=== PATIENT | male | born 1965 | race Caucasian/White ===

== ENCOUNTER 2023-10-23 12:17 | Emergency (ER) | payer BC, SELFPAY ==
[2023-10-23 12:21] VITALS: BP 138/88
[2023-10-23 12:24] VITALS: BP 138/88; BMI 29.9
[2023-10-23 12:33] LABS: % Basophils 1.2 % (0-2); % Eosinophils 1.9 % (0-6); % Immature Granulocytes 0.5 % (0-0.5); % Lymphocytes 25.8 % (20.5-51.1); % Monocytes 10.1 % (1.7-9.3); % Neutrophils 60.5 % (42.2-75.2); Absolute Basophils 0.1 10^3/uL (0-0.2); Absolute Eosinophils 0.1 10^3/uL (0-0.7); Absolute Lymphocytes 1.1 10^3/uL (1.2-3.4); Absolute Monocytes 0.4 10^3/uL (0.1-0.6); Absolute Neutrophils 2.6 10^3/uL (1.4-6.5); Hematocrit 42.1 % (39.0-52.0); Hemoglobin 14.5 g/dL (13.0-18.0); Mean Corp Hgb Conc. 34.4 g/dL (33.0-37.0); Mean Corpuscular Hgb 33.3 pg (27.0-31.0); Mean Corpuscular Volume 96.8 fL (80.0-94.0); Mean Platelet Volume 9.5 fL (7.4-10.4); Nucleated Red Blood Cells % 0 % (-); Platelet Count 214 10^3/uL (130-400); Red Blood Cell Count 4.35 10^6/uL (4.70-6.10); Red Cell Dist. Width 12.6 % (11.5-14.5); White Blood Cell Count 4.3 10^3/uL (4.8-10.8)
[2023-10-23 12:46] LABS: ALT (SGPT) 60 U/L (0-50); AST (SGOT) 51 U/L (17-59); Albumin 4.6 g/dl (3.5-5.0); Alkaline Phosphatase 38 U/L (38-126); Blood Urea Nitrogen 18 mg/dl (9-20); Carbon Dioxide 28 mmol/L (22-30); Chloride 106 mmol/L (98-107); Estimated Creatinine Clearance 83 ml/min; Glucose 149 mg/dl (70-99); Potassium 3.7 mmol/L (3.5-5.1); Sodium 141 mmol/L (135-145); Total Bilirubin 0.6 mg/dl (0.2-1.3); Total Protein 7.4 g/dl (6.3-8.2); eGFR > 60.00
--- NOTE | 2023-10-23 12:57 | ED.GENMED ---
History of Present Illness
General
Chief Complaint: Fainting/Passed Out
Source: patient
Time Seen by Provider: 10/23/23 12:19
Travel History
Have you had any contact with someone who has COVID-19?: No
Do you have any symptoms of coronavirus? Fever > 100 degrees, chills, cough, shortness of breath, sore throat, loss of taste or smell, muscle aches, or headache?: No
History of Present Illness
History of Present Illness:
57-year-old male presents to the emergency room after having a syncopal episode. Patient states that he walked with his 4 miles this morning. They then took the kids to a track meet and while watching the me he developed a sensation that he
might pass out. This included feeling lightheaded, his vision closing in from the sides and feeling generally weak. His helped him to the ground and does believe he had a loss of consciousness. Currently the patient feels back to baseline.
He denies having chest pain or shortness of breath. No travel within the past 4 to 6 weeks. No change in medications recently though he does take lisinopril and amlodipine for hypertension. Patient denies any previous episodes such as this.
Past History
Past History
ED Past Medical History: HTN
ED Past Surgical History: None
Social History
Tobacco: Non-smoker
Alcohol: None
Drug: None
Personal:
Living: with family
Phy Exam
Physical Exam
Physical Exam:
General: Awake, Alert, Oriented X3. No acute distress.
Vitals: unremarkable
Head: Atraumatic
Eyes: Pupils equal, EOMI
Throat: Airway intact, no exudates
Neck: Trachea midline
Lungs: Clear and equal b/l
Heart: Regular rate, no murmurs
Abd: Soft, Nontender, No pulsatile mass
Neuro: Cranial nerves intact, muscle strength equal bilaterally, cerebellar exam normal
Skin: Warm, dry, no rash
Extremities: pulses equal b/l, no edema
Course
Orders/Labs/Results
Orders:
Orders
10/23/23 12:22
EKG [Electrocardiogram (*1)] Stat
Reason for Study: Fatigue / Weakness
EKG- Treatment ONCE
10/23/23 12:27
CMP [Comprehensive Metabolic Panel] Stat
Complete Blood Count/With Diff Stat
Abnormal Lab Results
10/23/23
12:27
WBC 4.3 L 10^3/uL
(4.8-10.8)
RBC 4.35 L 10^6/uL
(4.70-6.10)
MCV 96.8 H fL
(80.0-94.0)
MCH 33.3 H pg
(27.0-31.0)
Absolute Lymphs (auto) 1.1 L 10^3/uL
(1.2-3.4)
Monocytes % 10.1 H %
(1.7-9.3)
Glucose 149 H mg/dl
(70-99)
ALT 60 H U/L
(0-50)
10/23/23 12:27
10/23/23 12:27
Vital Signs
Initial and Last Documented VS:
Initial Vital Signs
Pulse Resp
88 26
10/23/23 12:20 10/23/23 12:20
Last Documented Vital Signs
Temp Pulse Resp BP Pulse Ox
98.9 F 88 17 135/73 95
10/23/23 12:24 10/23/23 14:30 10/23/23 14:30 10/23/23 14:00 10/23/23 14:30
*EKG
Interpreted by ED Provider?: Yes
Interpretation: normal
Heart Rate: 77
Rate: normal
Rhythm: sinus
Schneider: normal axis
Interval: normal interval
QRS Pattern: normal QRS
Ischemia: non-specific ST changes
*Registration Rep Interpretation
Rate: normal
Interpretation: normal
Rhythm: sinus
*Critical Care Note
Total Time (30-74mins, 75-104mins- exclusive of procedures): Not Applicable
ED Attending Note
-
Portions of this chart may have been created with voice recognition software.� Occasional wrong word or��sound alike� substitutions may have occurred due to the inherent limitations of voice recognition software.
Discharge Plan
Departure
Patient Disposition: Home (Routine Discharge)
Date of Disposition: 10/23/23
Time of Disposition: 14:58
Patient with high blood pressure during this ER visit?: Yes
Condition: Good
Discharge Problem:
Syncope
Instructions: Syncope (Fainting) (DC), BLOOD PRESSURE
Referrals:
Justen Smith MD [Family Provider] -
Interventions
Interventions:
*Risk Screen - Suicide Last Done: 10/23/23 13:26
*Neglect/Abuse Screening Last Done: 10/23/23 13:26
ED- Fall Risk Assessment Last Done: 10/23/23 13:27
*ED COVID-19 Vaccine History Last Done: 10/23/23 13:26
ED- Cardiac Assessment Last Done: 10/23/23 13:27
ED- Neurological Assessment Last Done: 10/23/23 13:27
Discharge Date and Time
Print Language: [id number]
[2023-10-23 13:00] VITALS: BP 133/77
[2023-10-23 14:00] VITALS: BP 135/73
[2023-10-23 15:00] VITALS: BP 138/86
[2023-10-23 15:39] VITALS: BP 138/86
== END 2023-10-23 15:41 | disposition home or self-care (01) ==
LOC: EMR 12:17
PROVIDERS: EMERGENCY PHYSICIAN Emergency Medicine; FAMILY PHYSICIAN Family Medicine
DX: R55 Syncope and collapse (principal); I10 Essential (primary) hypertension
CPT/HCPCS: 99284; 80053; 85025; 93005